=== PATIENT | female | born 1985 | race Caucasian/White ===

== ENCOUNTER 2018-03-18 16:25 | Emergency (ER) | payer OTHER ==
[2018-03-18] MEDS ORDERED: DEXAMETHASONE SOD PHOS INJ 10 MG/1 ML VIAL IM ONE (18:03)
[2018-03-18] MEDS ORDERED: KETOROLAC TROMETHAMINE 60 MG/2 ML SDV IM ONE (18:03)
[2018-03-18] MEDS ORDERED: HYDROCODONE/ACETAMINOPHEN 5-325 MG (6 TAB/ER DISP) PO PRN (18:07)
--- NOTE | 2018-03-18 18:08 | ER Document Report ---
HPI - HPI Patient complains to provider of: Right shoulder pain Onset: Other - 3 weeks Onset/Duration: Persistent, Worse Pain Level: 5 Context: Patient states she has had shoulder pain off and on for several months but recently fell on 02/24/2018. Patient states whenever she slipped she landed on her elbow jarring her right shoulder. Patient complains of shoulder pain with movement. Patient went to an urgent care and had x-rays done which did not show any acute fracture. Patient was given a sling. Patient states that she did not have any pain relief with the diclofenac she was prescribed. Patient has not seen an orthopedic since the injury. Associated Symptoms: Other - Right shoulder pain Exacerbated by: Movement Relieved by: Denies Similar symptoms previously: Yes Recently seen / treated by doctor: Yes - ROS ROS below otherwise negative: Yes Systems Reviewed and Negative: Yes All other systems reviewed and negative - CONSTITUTIONAL Constitutional: DENIES: Fever, Chills - CARDIOVASCULAR Cardiovascular: DENIES: Chest pain - RESPIRATORY Respiratory: DENIES: Trouble Breathing, Coughing - MUSCULOSKELETAL Musculoskeletal: REPORTS: Extremity pain - R shoulder/ fell 6wks ago. DENIES: Back Pain, Neck Pain - DERM Skin Color: Normal Past Medical History - General Information source: Patient - Social History Smoking Status: Current Every Day Smoker Smoking Education Provided: Yes Frequency of alcohol use: None Drug Abuse: None Occupation: Retail Lives with: Family Family History: Reviewed & Not Pertinent Patient has suicidal ideation: No Patient has homicidal ideation: No - Medical History Medical History: Negative Renal/ Medical History: Denies: Hx Peritoneal Dialysis Past Surgical History: Reports: Hx Section Vertical Provider Document - CONSTITUTIONAL Agree With Documented VS: Yes Exam Limitations: No Limitations General Appearance: WD/WN, No Apparent Distress - INFECTION CONTROL TRAVEL OUTSIDE OF THE [place] IN LAST 30 DAYS: No - HEENT HEENT: Atraumatic, Normocephalic - NECK Neck: Normal Inspection, Supple - RESPIRATORY Respiratory: Breath Sounds Normal, No Respiratory Distress - CARDIOVASCULAR Cardiovascular: Regular Rate, Regular Rhythm Pulses: Normal: Radial - BACK Back: Normal Inspection - MUSCULOSKELETAL/EXTREMETIES Musculoskeletal/Extremeties: MAEW, Tender - Right shoulder joint tenderness over anterior aspect of humeral head, no dislocation, no deformity, tenderness increases with extension and abduction. - NEURO Level of Consciousness: Awake, Alert, Appropriate Motor/Sensory: No Motor Deficit - DERM Integumentary: Warm, Dry, No Rash Course - Re-evaluation Re-evalutation: 03/18/18 18:05 Patient was recently evaluated in urgent care earlier this month and had an x- ray performed. Patient states there was no bony abnormality. Patient complains of continued pain since then. Patient encouraged not to wear the sling constantly so that she does not risk developing a frozen shoulder joint. Patient encouraged to follow-up with orthopedic doctor for further evaluation. Patient is requesting a steroid injection as this seemed to help her pain symptoms at her last visit. Controlled substance database reviewed. - Vital Signs Vital signs: Temp Pulse Resp BP Pulse Ox 98.3 F 109 H 14 143/80 H 99 03/18/18 16:29 03/18/18 16:29 03/18/18 16:29 03/18/18 16:29 03/18/18 16:29 Discharge - Discharge Clinical Impression: Shoulder sprain Qualifiers: Encounter type: initial encounter Shoulder sprain type: unspecified sprain Laterality: right Qualified Code(s): S43.401A - Unspecified sprain of right shoulder joint, initial encounter Condition: Stable Disposition: HOME, SELF-CARE Instructions: Muscle Relaxers ([facility]), Shoulder Injury ([facility]), Steroid Medication Injection, Toradol Injection ([facility]) Additional Instructions: Return immediately for any new or worsening symptoms Followup with your primary care provider, call tomorrow to make a followup appointment Follow-up with orthopedic doctor for further evaluation, call Monday for an appointment time Prescriptions: Cyclobenzaprine HCl [Flexeril 10 Mg Tablet] 10 mg PO TID #15 tablet Naproxen [Naprosyn 250 Nmg Tablet] 1 tab PO BID #14 tablet Referrals: [facility] ([place] [Provider Group] - Follow up as needed
[2018-03-18 18:27] VITALS: BP 120/77
== END 2018-03-18 18:30 | disposition home or self-care (01) ==
LOC: ER 16:25
DX: S43.401D Unspecified sprain of right shoulder joint, subsequent encounter (principal); M25.511 Pain in right shoulder; W01.0XXD Fall on same level from slipping, tripping and stumbling without subsequent striking against object, subsequent encounter; Z79.899 Other long term (current) drug therapy; F17.200 Nicotine dependence, unspecified, uncomplicated
CPT/HCPCS: 99283; 96372; J1885; J1100